=== PATIENT | male | born 1990 ===

== ENCOUNTER 2019-03-13 11:28 | Emergency (ER) | payer BC ==
[2019-03-13 11:40] VITALS: BP 127/86
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
== END 2019-03-13 13:24 | disposition home or self-care (01) ==
LOC: UCEAST 11:28
DX: S43.102A Unspecified dislocation of left acromioclavicular joint, initial encounter (principal); V18.0XXA Pedal cycle driver injured in noncollision transport accident in nontraffic accident, initial encounter; Y93.55 Activity, bike riding; Y92.410 Unspecified street and highway as the place of occurrence of the external cause; Y99.8 Other external cause status
CPT/HCPCS: 99202; G0463